=== PATIENT | male | born 1955 | race Caucasian/White ===

== ENCOUNTER 2018-12-01 05:01 | Emergency (ER) | payer OTHER ==
[~2018-12-01] VITALS: Ht 160 cm; Wt 83.9 kg
[~2018-12-01 05:01] MED LIST: ACCURETIC 20-11 EACH; ASPIR 8181 MG; BENADRYL25 MG PO; FAMVIR500 MG PO; FARXIGA10 MG; FISH OIL 1,001000 M2; GLUCOPHAGE1000 MG; GLUCOTROL10 MG; GLYBURIDE 5 MG T5 M1; HYDROCODON-ACE1 EAC3; HYDROCODON-ACE1 EAC7 PO; JANUVIA100 MG; MOBIC7.5 MG; ONGLYZA5 MG; PREDNISONE 20 M20 MG PO; ROXICODONE5 MG; ZANTAC 150MG T150 MG PO
[2018-12-01 05:05] VITALS: BP 176/82
[2018-12-01] MEDS ORDERED: PRAVACHOL40 MG PO (05:10)
[2018-12-01] MEDS ORDERED: HYDROXYZINE HCL25 M1 PO (05:11)
[2018-12-01] MEDS ORDERED: TRESIBA100 UNIT/1 SUBQ (05:13)
[2018-12-01] MEDS ORDERED: NOVOLOG100 UNIT/1 SUBQ (05:14)
[2018-12-01] MEDS ORDERED: PREDNISONE 20 M20 M1 PO (05:18)
[2018-12-01] MEDS ORDERED: NORCO 5-325 TA1 EAC1 PO (05:18)
[2018-12-01] MEDS ORDERED: FLEXERIL PO (05:18)
== END 2018-12-01 05:27 | disposition home or self-care (01) ==
LOC: M.ERS 05:01
DX: M54.31 Sciatica, right side (principal); E11.9 Type 2 diabetes mellitus without complications; I10 Essential (primary) hypertension; Z79.4 Long term (current) use of insulin